=== PATIENT | female | born 1940 | race Hispanic/Latino ===

== ENCOUNTER 2017-04-06 21:44 | Inpatient (IN) | payer MEDICARE, OTHER ==
[~2017-04-06] VITALS: Ht 165.1 cm; Wt 77.1 kg
[~2017-04-06 21:44] MED LIST: ASPRIN; DAFLON; ENALAPRIL MALEA10 MG PO; NAPROXEN375 M1 PO; PANTOPRAZOLE SO40 MG PO; SULINDAC; Z.0.LEVOTHYROXINE25 PO; Z.0.OMEPRAZOLE40 MG PO; Z.0.OXYBUTYNIN CHLOR PO; Z.0.VERAPAMIL ER240 PO; Z.2.METFORMIN HCL500 PO; [UNRECOGNIZED DRUG - OTHER] PO
[2017-04-06] MEDS ORDERED: ACETAMINOPHEN 325 MG TAB ONE (22:35)
[2017-04-06 22:58] LABS: BASOPHILS % 0.2 % (0.0-1.0); EOSINOPHILS % 0.1 % (0.0-6.0); HEMATOCRIT 38.3 % (34.2-44.1); HEMOGLOBIN 12.9 g/dL (12.0-16.0); LYMPHOCYTES # (AUTO) 0.6 (1.0-3.2); LYMPHOCYTES % 5.5 % (18.0-39.1); MEAN CORPUSCULAR HEMOGLOBIN 32.7 pg (28-32); MEAN CORPUSCULAR HGB CONC 33.7 g/dL (31-35); MONOCYTES % 8.7 % (4.4-11.3); NEUTROPHILS # (AUTO) 9.5 (2.1-6.9); NEUTROPHILS % 85.1 % (38.7-80.0); PLATELET COUNT 251 x10e3/uL (140-360); RED BLOOD COUNT 3.95 x10e6/uL (3.6-5.1); RED CELL DISTRIBUTION WIDTH 12.2 % (11.7-14.4)
[2017-04-06 22:59] LABS: BILIRUBIN,URINE 1+ (NEGATIVE); KETONES,URINE TRACE (NEGATIVE); LEUKOCYTE ESTERASE ,URINE TRACE (NEGATIVE); NITRITE,URINE NEGATIVE (NEGATIVE); PROTEIN,URINE DIPSTICK NEGATIVE (NEGATIVE); URINE UROBILINOGEN 4 mg/dL (0.2 - 1)
[2017-04-06] MEDS ORDERED: ACETAMINOPHEN 325 MG TAB PO ONE (23:00)
[2017-04-06 23:02] LABS: CLARITY,URINE CLEAR (CLEAR); COLOR,URINE AMBER (YELLOW)
[2017-04-06 23:12] LABS: BACTERIA,URINE FEW /HPF; EPITHELIAL CELLS,URINE FEW /LPF; WBC,URINE (MAN) 0-5 /HPF (0-5)
[2017-04-06 23:14] LABS: ALANINE AMINOTRANSFERASE 317 IU/L (0-55); ALBUMIN 4.1 g/dL (3.5-5.0); ALBUMIN/GLOBULIN RATIO 1.1 (0.8-2.0); ALKALINE PHOSPHATASE 199 IU/L (40-150); AMYLASE 1533 U/L (25-125); ANION GAP 15.1 mmol/L (8-16); BLOOD UREA NITROGEN 17 mg/dL (7-26); BUN/CREATININE RATIO 22 (6-25); CALCIUM 9.5 mg/dL (8.4-10.2); CARBON DIOXIDE 24 mmol/L (22-29); CHLORIDE 103 mmol/L (98-107); CREATINE KINASE 66 IU/L (29-168); CREATININE, SERUM 0.79 mg/dL (0.57-1.11); EST GLOMERULAR FILTRATION RATE > 60 ML/MIN (60-); GLUCOSE 173 mg/dL (74-118); POTASSIUM 4.1 mmol/L (3.5-5.1); SODIUM 138 mmol/L (136-145)
[2017-04-06 23:21] LABS: TROPONIN I 0.013 ng/mL (0-0.300)
[2017-04-06 23:36] LABS: LIPASE 6039 U/L (8-78)
[2017-04-07] MEDS ORDERED: ONDANSETRON HCL INJ 2 MG/ML VIAL IV STA (00:29)
[2017-04-07] MEDS ORDERED: HYDROMORPHONE 1MG/1ML INJ IV STA (00:29)
[2017-04-07] MEDS ORDERED: SODIUM CHLORIDE 0.9% 1000ML 1,000 ML IV ONE (00:30)
--- NOTE | 2017-04-07 00:39 | Diagnostic Imaging Report ---
EXAM: US GALLBLADDER DATE: 04/06/2017 12:00 AM INDICATION: \S\RUQ PAIN, FEVER \S\Y, COMPARISON: None TECHNIQUE: Transverse and longitudinal coley scale and color doppler sonographic images of the upper abdomen were obtained. FINDINGS: LIVER 14.7 cm in the right midclavicular line. Slightly increased echogenicity, normal contour, no masses. GALLBLADDER No stones, sludge, wall-thickening or pericholecystic fluid. Negative sonographic Lindquist's sign. BILE DUCTS No intra nor extra-hepatic biliary dilation. Common bile duct measures 0.6 cm PANCREAS: Not visualized due to bowel gas. RIGHT KIDNEY: 11.6 cm Echogenicity: Normal Collecting System: No hydronephrosis Stones: None Cyst/Mass: Right inferior cyst, 0.6 x 1.4 1.5 cm VESSELS: Aorta: Visualized portions are within normal size limits Inferior Vena Cava: Visualized portions are normal Main Portal Vein: 1.1 cm, normal size with hepatopetal flow. FREE FLUID: None IMPRESSION: No cholelithiasis or acute cholecystitis. Hepatic steatosis. Signed by: Dr Ofelia Mixon MD on 04/07/2017 12:36 AM
[2017-04-07] MEDS ORDERED: METRONIDAZOLE 500MG/NS 100ML IV SCH (01:15)
[2017-04-07] MEDS ORDERED: DEXTROSE 50% SYRINGE 50 ML IV PRN (01:15)
[2017-04-07] MEDS ORDERED: CEFOXITIN 1GM/ DEXTROSE 50ML ML IV SCH (01:15)
[2017-04-07] MEDS ORDERED: SODIUM CHLORIDE 0.9% 1000ML 1,000 ML ONE (01:37)
[2017-04-07 01:52] VITALS: BP 150/77
[2017-04-07] MEDS: SODIUM CHLORIDE 0.9% 1000ML 1,000 ML IV SCH ×6 (01:58→23:40)
[2017-04-07] MEDS ORDERED: ACETAMINOPHEN 325 MG TAB PO PRN (02:00)
[2017-04-07 05:00] VITALS: BP 121/67
[2017-04-07] MEDS: CEFOXITIN 1GM/ DEXTROSE 50ML 50 ML IV SCH ×3 (05:22→22:03)
[2017-04-07] MEDS: METRONIDAZOLE 500MG/NS 100ML 100 ML IV SCH ×4 (06:03→23:40)
[2017-04-07] MEDS: INSULIN REGULAR, HUMAN 100 UNIT/1 ML 3ML VIAL SQ SCH ×4 (07:30→20:53)
--- NOTE | 2017-04-07 09:22 | History and Physical ---
PCP: Dr. Declan Yao CHIEF COMPLAINT: Abdominal pain and diagnosed with pancreatitis. HISTORY: Patient is a pleasant 76-year-old female with abdominal pain. She was admitted on March 16, 2017, and discharged on March 17, 2017, and went home. She felt fine with abdominal pain at that time with possible reflux. GI consultation with Dr. Godfrey. The patient went home and did okay, but for the past day or 2 the patient was having increasing abdominal pain. The patient came back in with imaging gallbladder ultrasound showing no cholelithiasis or acute cholecystitis. She does have hepatic steatosis. However, with abdominal pain, amylase and lipase, diagnosed of 1533 and 6039 respectively. Her liver enzymes are also elevated. AST and ALT are 548 and 317 respectfully with elevated alkaline phos is 199. Patient does have abdominal pain. She is pending for MRCP. Consultation with Dr. Robyn Altman, GI physician on-call. The patient is otherwise stable at this time. PAST MEDICAL HISTORY: Hypothyroidism, abdominal reflux, diabetes, type 2, overactive urinary bladder, hypertension. PAST SURGICAL HISTORY: Noncontributory. SOCIAL HISTORY: Patient does not smoke or use alcohol. She lives with her family. ALLERGIES: NO KNOWN ALLERGIES. HOME MEDICATIONS: She is on levothyroxine, metformin, omeprazole, oxybutynin, Protonix, verapamil, and baby aspirin. PHYSICAL EXAMINATION VITAL SIGNS: Temperature is 97, blood pressure 121/67, pulse rate 81, respirations 18. GENERAL: The patient is not in acute distress. She is awake. HEENT: Normocephalic, atraumatic and anicteric. NECK: Supple grossly. PULMONARY: Diminished breath sounds. CARDIOVASCULAR: S1 and S2. Regular rate and rhythm. ABDOMEN: Tenderness. No rebound or guarding. EXTREMITIES: No cyanosis or edema. NEUROLOGICAL: No focal deficit. LABORATORY: Sodium is 138, potassium 4.1, chloride 103, bicarb 28, BUN 17, creatinine 0.8, and glucose 173. WBC 11.1, hemoglobin 12.9, hematocrit 38.3, and platelets 251,000. AST is high at 48 and ALT is 3.7. Alkaline phosphatase 199. Amylase is 1533 and lipase is 6039. IMPRESSION 1. Acute pancreatitis with elevation of liver enzymes: May be secondary to gallstone pancreatitis. 2. Abdominal pain. 3. Baseline diabetes. 4. Hypertension. PLAN: Lipid panel. IV fluid rehydration. Consultation Dr. Robyn Altman. MRCP. The patient will need if due to gallstone pancreatitis surgical intervention. Job#: [id number] ANGELA
[2017-04-07 09:23] LABS: CHOL/HDL RATIO 2.6 (3.0-3.6)
[2017-04-07] MEDS: VERAPAMIL HCL 240 MG TABSR PO SCH (09:25)
[2017-04-07] MEDS: ONDANSETRON HCL INJ 2 MG/ML VIAL IV PRN ×2 (09:34→12:59)
[2017-04-07 10:13] VITALS: BP 140/71
[2017-04-07 13:41] VITALS: BP 160/80
[2017-04-07 16:44] VITALS: BP 125/59
[2017-04-07 20:00] VITALS: BP 131/61
[2017-04-08] VITALS: BP 100/50
[2017-04-08 04:00] VITALS: BP 127/58
--- NOTE | 2017-04-08 04:34 | Consultation ---
DATE OF CONSULTATION: April 07, 2017 CHIEF COMPLAINT: Abdominal pain, vomiting. HISTORY OF PRESENT ILLNESS: This patient is a 76-year-old female with recurrent pain in the epigastric area, radiating to the back with nausea and vomiting. The last episode was around Thanksgiving and this time a few days ago. She denies fever or chills. She has no history of alcohol abuse. She was told in the past that she has gallstones. PAST MEDICAL HISTORY: Positive for diabetes, hypertension, hypothyroidism, and GERD. SURGICAL HISTORY: Positive for hysterectomy. ALLERGIES: PATIENT HAS NO DRUG ALLERGIES. SOCIAL HABITS: She does not smoke or drink. REVIEW OF SYSTEMS: No chest pain. No shortness of breath or cough. PHYSICAL EXAMINATION: VITAL SIGNS: Stable. She is afebrile. GENERAL: The patient is awake, alert, in no apparent distress. HEENT: Sclerae nonicteric. NECK: Supple. LUNGS: Clear to auscultation. HEART: Regular rate and rhythm. No murmurs. ABDOMEN: Soft with some guarding tenderness, epigastric area. No rebound. EXTREMITIES: Without cyanosis or edema. LABS: White cell count 11, hemoglobin of 13. Her bilirubin is 2.4 with alkaline phosphatase 199 and AST of 548. The patient's lipase is 6039 with amylase of 1533. Triglyceride is 76. Ultrasound of the gallbladder showed no stones or sludge or wall thickening. ASSESSMENT: Abdominal pain, vomiting in patient with elevated liver enzymes suspicious for passing stone into the bile duct. PLAN: MRCP is pending. Will follow patient with you closely. Job#: [id number]
[2017-04-08] MEDS: METRONIDAZOLE 500MG/NS 100ML 100 ML IV SCH ×4 (05:52→23:15)
[2017-04-08 07:20] LABS: BASOPHILS % 0.5 % (0.0-1.0); EOSINOPHILS # (AUTO) 0.2 (0.0-0.4); EOSINOPHILS % 2.5 % (0.0-6.0); HEMATOCRIT 32.2 % (34.2-44.1); HEMOGLOBIN 10.7 g/dL (12.0-16.0); LYMPHOCYTES # (AUTO) 1.3 (1.0-3.2); LYMPHOCYTES % 16.5 % (18.0-39.1); MEAN CORPUSCULAR HEMOGLOBIN 32.3 pg (28-32); MEAN CORPUSCULAR HGB CONC 33.2 g/dL (31-35); MEAN CORPUSCULAR VOLUME 97.3 fL (81-99); MONOCYTES # (AUTO) 0.6 (0.2-0.8); MONOCYTES % 7.5 % (4.4-11.3); NEUTROPHILS # (AUTO) 5.6 (2.1-6.9); NEUTROPHILS % 72.5 % (38.7-80.0); PLATELET COUNT 199 x10e3/uL (140-360); RED BLOOD COUNT 3.31 x10e6/uL (3.6-5.1); RED CELL DISTRIBUTION WIDTH 12.4 % (11.7-14.4)
[2017-04-08] MEDS: INSULIN REGULAR, HUMAN 100 UNIT/1 ML 3ML VIAL SQ SCH ×4 (07:30→19:37)
--- NOTE | 2017-04-08 07:35 | Consultation ---
DATE OF CONSULTATION: April 07, 2017 REFERRING PHYSICIAN: Dr. Joby Iglesias. REASON FOR CONSULTATION: Acute idiopathic pancreatitis. HISTORY OF PRESENTING ILLNESS: A 76-year-old, very pleasant female who I had seen when she was admitted last month. She was admitted from March 16 to March 17 with mid epigastric pain. At that time, she was not having any pancreatitis. She was discharged home to follow with me within 2 weeks to rule out any underlying peptic ulcer disease. She was advised to take PPI twice daily for 2 weeks followed by once daily. Apparently, the patient after discharge never called my office and never followed up with me. Now, she is getting admitted through the emergency room yesterday with acute onset of mid epigastric pain radiating into the back associated with some nausea and vomiting. The blood work revealed significantly elevated lipase level to 6039. Amylase 1533. Right upper quadrant sonogram done that showed no gallstones, no biliary ductal dilatation. Pancreas was not visualized. Liver test was also found quite elevated with AST 548, ALT 317, alkaline phosphatase 199 and total bilirubin 2.4. On her last admission with epigastric pain, her LFTs were noted normal. Subsequently, the patient also underwent MRCP that did not show any gallstones, visualized portion of the pancreas was normal. No biliary ductal dilatation. The patient's triglyceride level was also found normal. GI has been consulted for further evaluation and recommendations for idiopathic pancreatitis. REVIEW OF SYSTEMS: Twelve point systems reviewed, symptomatology is limited to GI system. PAST MEDICAL HISTORY: Hypothyroidism, gastroesophageal reflux disease, type 2 diabetes, overactive urinary bladder, hypertension. PAST SURGICAL HISTORY: No abdominal surgery. Upper endoscopy and colonoscopy. FAMILY HISTORY: Diabetes, hypertension runs in the family. Negative for any GI or [employer]OR [employer] malignancy. SOCIAL HISTORY: No smoking, no alcohol or any illicit drug use. She lives with her family. Good social support. ALLERGIES: NO KNOWN DRUG ALLERGIES. HOME MEDICATIONS: Levothyroxine, metformin, omeprazole, oxybutynin, verapamil, and baby aspirin. PHYSICAL EXAMINATION VITAL SIGNS: Temperature 98.5, pulse 56, respirations 18, blood pressure 125/59, oxygen saturation 98% on 2 liters of nasal cannula. GENERAL: Appears to be in some distress secondary to pain. HEENT: Moist mucous membranes. Anicteric sclerae. CVS: S1 and S2 regular. LUNGS: Bilaterally grossly clear. ABDOMEN: Obese with pannus palpable. Epigastric tenderness without rebound, rigidity or guarding. Positive bowel sounds. EXTREMITIES: Warm. No leg edema. LABORATORY DATA: WBC 11.14, hemoglobin 12.9, hematocrit 38.3, MCV 97, platelet count 251,000. Sodium 138, potassium 4.1, chloride 103, bicarb 24. BUN 79, creatinine 0.79. Glucose 173. Liver test showed a total bilirubin 2.4. AST 548, ALT 317, alkaline phosphatase 199. Troponin is negative. Triglycerides 76. Amylase 1533 and lipase level 6039. Right upper quadrant sonogram showed no cholelithiasis or acute cholecystitis. Hepatic steatosis. No intra or extrahepatic biliary ductal dilatation. Pancreas not visualized due to bowel gas. MRCP showed a 4 mm filling defect in the gallbladder neck, has more linear appearance and likely represents a vascular impression or fold rather than a stone. No mobile stones were noted on recent gallbladder ultrasound performed on 04/07/2017. No intrahepatic bile duct dilatation. Mild prominence of the common bile duct. No intraluminal filling defect, stricture or extrinsic compression. Hepatic steatosis. Stable 1.7 cm T2 hyperintense cystic lesion in the posterior mid to inferior aspect of the right kidney. No septation or mural nodules. This cystic lesion does not measure simple fluid in the recent CT of abdomen and pelvis, and shows simple appearance on recent right upper quadrant ultrasound, likely representing proteinaceous or hemorrhagic cyst. IMPRESSION: Acute idiopathic pancreatitis. However, given acute abnormal LFTs with elevated amylase and lipase, this is highly suggestive of gallstone pancreatitis. Although imaging studies do not confirm the presence of gallstones. It is also very likely that the patient might have passed a stone. PLAN: N.p.o., aggressive isotonic IV fluid resuscitation. Monitor liver enzymes. Will do a CT of the abdomen with contrast on 03/16/17 showed a normal pancreas. I recommend that surgery should be consulted for evaluation of cholecystectomy. I feel that the patient will benefit from cholecystectomy. I thank Dr. Iglesias for allowing me to participate in the care of this patient. Job#: [id number] MTDDaiana
[2017-04-08 07:46] LABS: ALANINE AMINOTRANSFERASE 162 IU/L (0-55); ALBUMIN 2.9 g/dL (3.5-5.0); ALKALINE PHOSPHATASE 116 IU/L (40-150); AMYLASE 396 U/L (25-125); ANION GAP 10.7 mmol/L (8-16); BLOOD UREA NITROGEN 9 mg/dL (7-26); BUN/CREATININE RATIO 11 (6-25); CALCIUM 8.8 mg/dL (8.4-10.2); CARBON DIOXIDE 22 mmol/L (22-29); CHLORIDE 110 mmol/L (98-107); CREATININE, SERUM 0.81 mg/dL (0.57-1.11); EST GLOMERULAR FILTRATION RATE > 60 ML/MIN (60-); GLUCOSE 112 mg/dL (74-118); LIPASE 876 U/L (8-78); POTASSIUM 3.7 mmol/L (3.5-5.1); SODIUM 139 mmol/L (136-145)
[2017-04-08] MEDS: VERAPAMIL HCL 240 MG TABSR PO SCH (07:49)
[2017-04-08 08:16] VITALS: BP 162/72
[2017-04-08 08:48] LABS: THYROID STIMULATING HORMONE 1.255 uIU/mL (0.350-4.940)
[2017-04-08] MEDS: SODIUM CHLORIDE 0.9% 1000ML 1,000 ML IV SCH ×2 (11:49→17:04)
[2017-04-08] MEDS: CEFOXITIN SOD 1 GM VIAL IV SCH ×2 (14:18→21:19)
[2017-04-08] MEDS: WATER STERILE 10 ML VIAL IV SCH ×2 (14:18→21:20)
[2017-04-08 16:15] VITALS: BP 132/60
[2017-04-08 20:00] VITALS: BP 146/70
[2017-04-09] VITALS: BP 141/65
[2017-04-09] MEDS: HYDROMORPHONE 1MG/1ML INJ IV PRN ×2 (03:28→04:08)
[2017-04-09] MEDS: SODIUM CHLORIDE 0.9% 1000ML 1,000 ML IV SCH ×4 (03:33→23:02)
[2017-04-09 04:00] VITALS: BP 136/65
[2017-04-09] MEDS: CEFOXITIN SOD 1 GM VIAL IV SCH ×3 (05:24→21:14)
[2017-04-09] MEDS: METRONIDAZOLE 500MG/NS 100ML 100 ML IV SCH ×4 (05:24→23:49)
[2017-04-09] MEDS: WATER STERILE 10 ML VIAL IV SCH ×3 (05:24→21:15)
[2017-04-09] MEDS: INSULIN REGULAR, HUMAN 100 UNIT/1 ML 3ML VIAL SQ SCH ×4 (07:30→21:05)
[2017-04-09 07:46] LABS: ANION GAP 14.7 mmol/L (8-16); BLOOD UREA NITROGEN 10 mg/dL (7-26); BUN/CREATININE RATIO 14 (6-25); CALCIUM 9.1 mg/dL (8.4-10.2); CARBON DIOXIDE 21 mmol/L (22-29); CHLORIDE 106 mmol/L (98-107); CREATININE, SERUM 0.71 mg/dL (0.57-1.11); EST GLOMERULAR FILTRATION RATE > 60 ML/MIN (60-); GLUCOSE 89 mg/dL (74-118); LIPASE 844 U/L (8-78); POTASSIUM 3.7 mmol/L (3.5-5.1); SODIUM 138 mmol/L (136-145)
[2017-04-09 08:21] VITALS: BP 168/78
[2017-04-09] MEDS: VERAPAMIL HCL 240 MG TABSR PO SCH (09:00)
--- NOTE | 2017-04-09 11:41 | Progress Note ---
DATE: April 08, 2017 SUBJECTIVE: Patient reports significant improvement in abdominal pain. She has been scheduled to undergo laparoscopic cholecystectomy tomorrow. REVIEW OF SYSTEMS GENERAL: No fever or chills. CVS: No chest pain or palpitations. RESPIRATORY: No cough or expectoration. MEDICATIONS 1. Cefoxitin 1 g IV q.8 h. 2. Metronidazole 100 mL q.6 h. along with her other medications. PHYSICAL EXAMINATION VITAL SIGNS: Temperature 98.5, pulse 61, respirations 18, blood pressure 132/60, oxygen saturation 94% on room air. GENERAL: Not in any acute distress. HEENT: Moist mucous membranes. Anicteric sclerae. CVS: S1, S2. Regular. LUNGS: Bilaterally grossly clear. ABDOMEN: Soft, obese, nondistended. Mild palpable epigastric tenderness. No rebound, rigidity or guarding. Positive bowel sounds. EXTREMITIES: Warm. No leg edema. LABS: WBC has come down to 7.70 from 11.14, hemoglobin 10.7 from 12.9, hematocrit 32.2, MCV 97.3, platelet count 199,000. Lipase level has come down to 876 from 6039, amylase level down to 396 from 1533, AST has come down to 80 from 584, ALT 162 from 317, total bilirubin 1.5 down from 2.4, alkaline phosphatase 116 from 199. IMPRESSION 1. Gallstone pancreatitis, stone likely has passed. 1. Liver function tests have started trending down. PLAN: Agree to continue intravenous fluids. Patient is already n.p.o. for laparoscopic cholecystectomy tomorrow. I will also check baseline viral hepatitis serology. Job#: [id number]
[2017-04-09 12:19] VITALS: BP 146/65
[2017-04-09] MEDS ORDERED: BUPIVACAINE 0.25%/EPI 30ML SDV INJ ONE (14:12)
[2017-04-09] MEDS ORDERED: IOPAMIDOL 610MG/1ML 300 MG/ML VIAL IV ONE (14:30)
[2017-04-09] MEDS ORDERED: FENTANYL CITRATE/PF 100MCG/2 ML INJ ONE (15:42)
[2017-04-09] MEDS ORDERED: SEVOFLURANE INHAL SOLN 250 ML PEN BTL ONE (16:08)
[2017-04-09] MEDS ORDERED: DEXAMETHASONE SOD PHOS INJ 4 MG/ML VIAL ONE (16:08)
[2017-04-09] MEDS ORDERED: ONDANSETRON HCL INJ 2 MG/ML VIAL ONE (16:08)
[2017-04-09] MEDS ORDERED: PROPOFOL IV EMULSION 10 MG/ML 20 ML VIAL ONE (16:08)
[2017-04-09] MEDS ORDERED: LIDOCAINE HCL 2% LOCAL INJ 5 ML SDV VIAL INJ ONE (16:08)
[2017-04-09] MEDS ORDERED: KETOROLAC TROMETHAMINE 30 MG/ML VIAL ONE (16:08)
--- NOTE | 2017-04-09 17:52 | Operative Report ---
DATE OF PROCEDURE: April 09, 2017 PREOPERATIVE DIAGNOSIS: Gallstone pancreatitis. POSTOPERATIVE DIAGNOSIS: Gallstones pancreatitis. OPERATIVE PROCEDURE: Laparoscopic cholecystectomy. ESCALATOR MECHANIC: None. ANESTHESIA: General endotracheal, Dr. Nichols. INDICATIONS: This is a 76-year-old female with history of epigastric pain recurrently with elevated lipase suggesting pancreatitis. Patient had ultrasound, which showed no gallstones. However, the MRCP showed some sludge in the gallbladder with mild dilatation of the hepatic biliary ducts. The clinical course of the patient is consistent with passage of a small stone through the bile duct. At this point, the patient consented for laparoscopic cholecystectomy with all attendant risks discussed including bleeding, infection and organ injury. PROCEDURE FINDINGS: Chronic cholecystitis with sludge in the gallbladder. DESCRIPTION OF PROCEDURE: The patient brought to the OR intubated. Abdomen was prepped with alcohol and draped in a sterile fashion. An infraumbilical incision was made and a 10-mm port inserted. Insufflation begun. Under direct vision, other port sites placed in the mid epigastric and right upper quadrant. Gallbladder was noted to be chronically inflamed. Fundus was retracted in cephalad direction. Neck of the gallbladder was retracted in lateral direction. With blunt dissection, the cystic artery and cystic duct were isolated. The cystic duct was mildly dilated at 6 to 7 mm. It was triply clipped and divided between clips. Cystic artery was controlled with clips also and divided. Gallbladder was detached from liver with cautery and taken out through the umbilical incision with the Endo pouch. The operative field was irrigated and hemostasis achieved. All ports were removed under direct vision. Fascia was closed with interrupted #0 Vicryl. Skin was closed with subcuticular stitch. Patient was extubated and transported to the recovery in guarded condition. Estimated blood loss was 5 mL. Job#: [id number]
[2017-04-09 20:00] VITALS: BP 147/66
--- NOTE | 2017-04-09 22:05 | Progress Note ---
DATE: April 09, 2017 DATE OF : 1940 SUBJECTIVE: Patient has undergone laparoscopic cholecystectomy today. Postsurgery, she has been allowed liquids. She has not passed any flatus. Admits to some incisional pain. REVIEW OF SYSTEMS GENERAL: No fever or chills. CVS: No chest pain, palpitations. RESPIRATORY: No cough or expectoration. MEDICATIONS 1. Metronidazole 100 mL q.6 h IV. 2. Cefoxitin 1 g IV q.8 h. 3. Hydromorphone 1 mg q.4 h IV p.r.n. 4. Acetaminophen 650 mg q.4 h p.r.n. 5. Zofran 4 mg q.4 h IV p.r.n. 6. Insulin regular subcutaneous nightly. 7. Verapamil 240 mg daily. IMPRESSION: Gallstone pancreatitis, status post laparoscopic cholecystectomy. PLAN: Postop care postsurgery. Patient to follow up with me in the office in 2 weeks. Job#: [id number] CQ
[2017-04-10] VITALS: BP 161/74
[2017-04-10 04:00] VITALS: BP 143/67
[2017-04-10] MEDS: WATER STERILE 10 ML VIAL IV SCH ×2 (05:12→14:16)
[2017-04-10] MEDS: CEFOXITIN SOD 1 GM VIAL IV SCH ×2 (05:12→14:16)
[2017-04-10] MEDS: METRONIDAZOLE 500MG/NS 100ML 100 ML IV SCH ×2 (05:25→11:48)
[2017-04-10] MEDS: INSULIN REGULAR, HUMAN 100 UNIT/1 ML 3ML VIAL SQ SCH ×3 (07:30→16:18)
[2017-04-10 07:58] LABS: ALANINE AMINOTRANSFERASE 97 IU/L (0-55); ALBUMIN 3.1 g/dL (3.5-5.0); ALBUMIN/GLOBULIN RATIO 0.9 (0.8-2.0); ALKALINE PHOSPHATASE 153 IU/L (40-150); ANION GAP 12.2 mmol/L (8-16); BLOOD UREA NITROGEN 15 mg/dL (7-26); BUN/CREATININE RATIO 19 (6-25); CALCIUM 8.8 mg/dL (8.4-10.2); CARBON DIOXIDE 21 mmol/L (22-29); CHLORIDE 111 mmol/L (98-107); CREATININE, SERUM 0.78 mg/dL (0.57-1.11); EST GLOMERULAR FILTRATION RATE > 60 ML/MIN (60-); GLUCOSE 129 mg/dL (74-118); POTASSIUM 4.2 mmol/L (3.5-5.1); SODIUM 140 mmol/L (136-145)
[2017-04-10] MEDS: VERAPAMIL HCL 240 MG TABSR PO SCH (08:13)
[2017-04-10 08:16] VITALS: BP 150/65
--- NOTE | 2017-04-10 09:23 | Discharge Summary ---
PRIMARY CARE PHYSICIAN: Dr. Declan Yao. CONSULTANTS: Dr. Rudolph Godfrey MD and Dr. Eddie Knight. FINAL DIAGNOSES 1. Gallstone-induced pancreatitis. 2. Status post laparoscopic cholecystectomy on April 09, 2017. SUMMARY: Patient is a 76-year-old female who came in with abdominal pain acutely. Had lipase greater than 6000. Patient basically has most likely gallstone-induced pancreatitis. MRCP preliminary unremarkable, no significant obstruction. The patient underwent laparoscopic cholecystectomy done by Dr. Eddie Knight. Today, the patient is able to eat. She is stable. She has passed gas and is ambulatory. No significant pain. No abdominal distention. The patient will go home today. Follow up with Dr. Knight as outpatient in approximately 1 week. Patient will take Questran as needed for diarrhea. She will continue with her home medications. She will take Tylenol No. 3 as needed for pain and Zofran as needed for nausea and vomiting. Patient is stable and discharged home today. Follow up with Dr. Knight next week. Job#: [id number] cc:MARE BOWDEN MD
[2017-04-10] MEDS: SODIUM CHLORIDE 0.9% 1000ML 1,000 ML IV SCH ×2 (09:29→17:20)
[2017-04-10 12:14] VITALS: BP 132/69
[2017-04-10 16:31] VITALS: BP 129/61
[2017-04-10] MEDS ORDERED: TYLENOL WITH C1 EACH PO (17:24)
[2017-04-10] MEDS ORDERED: QUESTRAN PACKET4 GM PO (17:24)
[2017-04-10] MEDS ORDERED: ZOFRAN ODT4 MG SL (17:24)
== END 2017-04-10 18:00 | disposition home or self-care (01) | DRG 417 ==
LOC: ER 21:44 → ERHOLD 04-07 01:23 → MED/SURG 04-07 01:34
PROVIDERS: ADMIT Internal Medicine; ATTEND Internal Medicine
PROC: 0FT44ZZ Resection of Gallbladder, Percutaneous Endoscopic Approach (ICD-10-PCS; principal; 2017-04-09 14:00)
DX: K81.1 Chronic cholecystitis (principal); K85.10 Biliary acute pancreatitis without necrosis or infection; E11.9 Type 2 diabetes mellitus without complications; I10 Essential (primary) hypertension
CPT/HCPCS: 36415; 74181; 76705; 80048; 80053; 80061; 81001; 82150; 82550; 82553; 82948; 83036; 83690; 84443; 84484; 85025; 87086; 87400; 88304; 93005; 99284; J0694; J1100; J1170; J1885; J2001; J2405; J7030

== ENCOUNTER → 2021-02-18 | Outpatient (CLI) | payer MEDICARE ==
[~2021-02-18] MED LIST changes: +QUESTRAN PACKET4 GM PO; +REGADENOSON 0.4 MG/5 ML SYR IV ONE; +TYLENOL WITH C1 EACH PO; +ZOFRAN ODT4 MG SL
== END ==
LOC: NM 09:33
PROVIDERS: ATTEND Internal Medicine Interventional Cardiology
DX: R07.9 Chest pain, unspecified (principal)
CPT/HCPCS: 78452; 93017; A9502; J2785

== ENCOUNTER 2024-01-19 08:48 | Outpatient (RCR) | payer MEDICARE ==
[~2024-01-19 08:48] MED LIST changes: -REGADENOSON 0.4 MG/5 ML SYR IV ONE
== END 2024-01-24 ==
LOC: PT 08:48
PROVIDERS: ATTEND Physician Assistant
DX: M75.121 Complete rotator cuff tear or rupture of right shoulder, not specified as traumatic (principal)

== ENCOUNTER 2024-02-04 09:00 | Outpatient (RCR) | payer MEDICARE | END 2024-02-24 | LOC: PT 09:00 | PROVIDERS: ATTEND Physician Assistant | DX: M75.121 Complete rotator cuff tear or rupture of right shoulder, not specified as traumatic (principal) ==